=== PATIENT | female | born 1965 | race American Indian/Alaskan Native ===

== ENCOUNTER 2016-12-22 09:33 | Outpatient (CLI) | payer BC ==
--- NOTE | 2016-12-22 14:54 | Mammography Report ---
BONE DEXA:12/22/16 09:33:00 CLINICAL: Postmenopausal. COMPARISON: None. TECHNIQUE: Two site bone DEXA performed on an Hologic scanner. FINDINGS: The average BMD of the lumbar spine L1-L4 is 1.201g/cm squared with a T-score of +0.5 and a Z-score of +1.4. The average BMD of the left hip is 1.065g/cm squared with a T-score of +0.2 and a Z-score of +0.6. IMPRESSION: WHO classification: Normal with average fracture risk based on both spine and left hip measurements. RECOMMENDATION: Clinical correlation and routine screening. DEFINITIONS: BMD = Bone Mineral Density T-score = BMD related to mean peak bone mass of young adult (mean expressed in Standard Deviation) Z-score = Age matched BMD expressed in SD World Health Organization (WHO) Diagnostic Criteria Normal T-score > -1 SD Osteopenia T-score between -1 and -2.4 SD Osteoporosis T-score -2.5 SD or below NOTE: BMD is not the only risk factor for fracture; also consider factors such as the patient's age, risk of falling, previous osteoporotic fracture, family history of osteoporotic fractures, current smoker, and low body weight. Z-scores are not calculated if >80 years of age.
== END 2016-12-22 09:34 | disposition home or self-care (01) ==
LOC: SPVWC 09:33
PROVIDERS: ATTEND Internal Medicine Hematology & Oncology
DX: Z78.0 Asymptomatic menopausal state (principal)
CPT/HCPCS: 77080

== ENCOUNTER 2017-04-21 11:47 | Outpatient (CLI) | payer BC ==
--- NOTE | 2017-04-25 09:38 | Magnetic Resonance Report ---
MR CERVICAL SPINE WITHOUT CONTRAST History: Malignant neoplasm of breast, pain. Technique: Axial T2. Sagittal T1, T2 and STIR. Comparison: None. Findings: There is normal height and alignment of the cervical vertebral bodies. Mild straightening of the normal lordosis is noted which is likely positional. Normal bone marrow signal. No evidence for fracture, bone lesion or subluxation. There is mild diffuse disc desiccation without significant narrowing. No bulging disc, herniation or central canal stenosis. The posterior elements are unremarkable. No hypertrophic facet arthropathy. The neural foramen are widely patent bilaterally. The cervical spinal cord is normal size and signal intensity throughout. No abnormal intramedullary signal. The paraspinal soft tissues are within normal limits. Impression: Normal MRI of the cervical spine for age. Minimal disc desiccation is noted. No evidence for fracture, malalignment or bone lesion.
== END 2017-04-21 11:48 | disposition home or self-care (01) ==
LOC: SPVIMAG 11:47
PROVIDERS: ATTEND Internal Medicine Hematology & Oncology
DX: M54.2 Cervicalgia (principal); C50.411 Malignant neoplasm of upper-outer quadrant of right female breast; E11.9 Type 2 diabetes mellitus without complications; F32.9 Major depressive disorder, single episode, unspecified
CPT/HCPCS: 72141

== ENCOUNTER 2019-08-09 14:27 | Emergency (ER) | payer BC, MEDICARE ==
[2019-08-09 14:32] VITALS: BP 101/70
== END 2019-08-09 18:11 | disposition left against medical advice (07) ==
LOC: ED 14:27
DX: M25.551 Pain in right hip (principal); Z53.21 Procedure and treatment not carried out due to patient leaving prior to being seen by health care provider